=== PATIENT | female | born 1980 | race Caucasian/White ===

== ENCOUNTER → 2018-04-07 | Outpatient (CLI) | payer OTHER | LOC: COL.RAD 09:41 | DX: M16.12 Unilateral primary osteoarthritis, left hip (principal); Z87.828 Personal history of other (healed) physical injury and trauma ==

== ENCOUNTER → 2018-04-22 | Outpatient (CLI) | payer OTHER | LOC: COL.RAD 13:15 | DX: M43.16 Spondylolisthesis, lumbar region (principal); M48.061 Spinal stenosis, lumbar region without neurogenic claudication; M51.36 Other intervertebral disc degeneration, lumbar region; Z87.828 Personal history of other (healed) physical injury and trauma ==

== ENCOUNTER → 2018-06-22 | Outpatient (CLI) | payer OTHER | LOC: MHCPAIN 08:11 | DX: G89.29 Other chronic pain (principal); M47.817 Spondylosis without myelopathy or radiculopathy, lumbosacral region; M53.3 Sacrococcygeal disorders, not elsewhere classified | CPT/HCPCS: G0463 ==

== ENCOUNTER → 2018-07-02 | Outpatient (CLI) | payer OTHER | LOC: MHCPAIN 14:24 | DX: M47.817 Spondylosis without myelopathy or radiculopathy, lumbosacral region (principal); M54.16 Radiculopathy, lumbar region ==

== ENCOUNTER → 2018-07-06 | Outpatient (CLI) | payer OTHER | LOC: MHCPAIN 10:52 | DX: G89.29 Other chronic pain (principal); M47.817 Spondylosis without myelopathy or radiculopathy, lumbosacral region; M53.3 Sacrococcygeal disorders, not elsewhere classified ==

== ENCOUNTER → 2018-07-20 | Outpatient (CLI) | payer OTHER | LOC: MHCPAIN 13:09 | DX: M47.817 Spondylosis without myelopathy or radiculopathy, lumbosacral region (principal); M54.16 Radiculopathy, lumbar region ==

== ENCOUNTER → 2018-08-06 | Outpatient (CLI) | payer OTHER | LOC: MHCPAIN 08:56 | DX: M47.817 Spondylosis without myelopathy or radiculopathy, lumbosacral region (principal); M53.3 Sacrococcygeal disorders, not elsewhere classified; G89.29 Other chronic pain | CPT/HCPCS: G0463; J1100; J2250; J3010 ==

== ENCOUNTER → 2018-08-20 | Outpatient (CLI) | payer OTHER | LOC: MHCPAIN 09:02 | DX: M47.817 Spondylosis without myelopathy or radiculopathy, lumbosacral region (principal); M54.16 Radiculopathy, lumbar region | CPT/HCPCS: J1100; J2250; J3010 ==

== ENCOUNTER → 2018-10-21 | Outpatient (CLI) | payer OTHER | LOC: MHCPAIN 13:07 | DX: G89.29 Other chronic pain (principal); M47.817 Spondylosis without myelopathy or radiculopathy, lumbosacral region; M53.3 Sacrococcygeal disorders, not elsewhere classified | CPT/HCPCS: G0463 ==

== ENCOUNTER → 2019-12-14 | Outpatient (CLI) | payer OTHER | LOC: MHCPAIN 08:13 | DX: M47.817 Spondylosis without myelopathy or radiculopathy, lumbosacral region (principal); M54.5 Low back pain; M53.3 Sacrococcygeal disorders, not elsewhere classified; G89.29 Other chronic pain; M54.16 Radiculopathy, lumbar region; M96.1 Postlaminectomy syndrome, not elsewhere classified | CPT/HCPCS: G0463 ==

== ENCOUNTER → 2019-12-22 | Outpatient (CLI) | payer OTHER | LOC: MHCPAIN 08:30 | DX: M79.18 Myalgia, other site (principal); M54.6 Pain in thoracic spine | CPT/HCPCS: J1040 ==

== ENCOUNTER → 2020-04-05 | Outpatient (CLI) | payer OTHER | LOC: MHCPAIN 08:49 | DX: M79.18 Myalgia, other site (principal); M96.1 Postlaminectomy syndrome, not elsewhere classified; M54.5 Low back pain; M54.6 Pain in thoracic spine; M54.2 Cervicalgia | CPT/HCPCS: G0463; J1040 ==

== ENCOUNTER → 2021-07-10 | Outpatient (CLI) | payer OTHER | LOC: MHCPAIN 10:03 | DX: M47.896 Other spondylosis, lumbar region (principal); M53.3 Sacrococcygeal disorders, not elsewhere classified; M96.1 Postlaminectomy syndrome, not elsewhere classified | CPT/HCPCS: G0463 ==

== ENCOUNTER → 2021-09-06 | Outpatient (CLI) | payer OTHER | LOC: MHCPAIN 07-26 11:29 | DX: M53.3 Sacrococcygeal disorders, not elsewhere classified (principal); M47.817 Spondylosis without myelopathy or radiculopathy, lumbosacral region; M96.1 Postlaminectomy syndrome, not elsewhere classified; G89.29 Other chronic pain | CPT/HCPCS: G0260; G0463; J1040; Q9967 ==

== ENCOUNTER → 2022-07-09 | Outpatient (CLI) | payer BC | LOC: MHCPAIN 08:05 | DX: M47.897 Other spondylosis, lumbosacral region (principal); M54.16 Radiculopathy, lumbar region; M54.81 Occipital neuralgia; M53.3 Sacrococcygeal disorders, not elsewhere classified | CPT/HCPCS: G0463 ==

== ENCOUNTER → 2022-07-22 | Outpatient (CLI) | payer BC | LOC: MHCPAIN 14:38 | DX: M47.816 Spondylosis without myelopathy or radiculopathy, lumbar region (principal); M96.1 Postlaminectomy syndrome, not elsewhere classified; M79.18 Myalgia, other site | CPT/HCPCS: J1040; Q9967 ==

== ENCOUNTER → 2022-09-04 | Outpatient (CLI) | payer BC | LOC: MHCPAIN 15:19 | DX: M54.16 Radiculopathy, lumbar region (principal); M54.50 Low back pain, unspecified; M96.1 Postlaminectomy syndrome, not elsewhere classified; G89.29 Other chronic pain; Z87.820 Personal history of traumatic brain injury | CPT/HCPCS: G0463 ==

== ENCOUNTER → 2023-03-04 | Outpatient (CLI) | payer BC | LOC: MHCPAIN 15:12 | DX: M48.061 Spinal stenosis, lumbar region without neurogenic claudication (principal); M96.1 Postlaminectomy syndrome, not elsewhere classified; M47.896 Other spondylosis, lumbar region; M54.17 Radiculopathy, lumbosacral region | CPT/HCPCS: G0463 ==

== ENCOUNTER → 2023-06-17 | Outpatient (CLI) | payer BC | LOC: MHCPAIN 14:59 | DX: M47.817 Spondylosis without myelopathy or radiculopathy, lumbosacral region (principal); M48.062 Spinal stenosis, lumbar region with neurogenic claudication; M96.1 Postlaminectomy syndrome, not elsewhere classified | CPT/HCPCS: G0463 ==